=== PATIENT | female | born 1945 | race Caucasian/White ===

== ENCOUNTER → 2017-08-09 | Outpatient (CLI) | payer MEDICARE, BC | LOC: MC.RAD 07:40 | DX: Z12.31 Encounter for screening mammogram for malignant neoplasm of breast (principal) ==

== ENCOUNTER → 2021-03-02 | Outpatient (CLI) | payer MEDICARE, BC | LOC: MC.RAD 09:15 | DX: Z12.31 Encounter for screening mammogram for malignant neoplasm of breast (principal); N64.89 Other specified disorders of breast ==

== ENCOUNTER → 2021-03-04 | Outpatient (CLI) | payer MEDICARE, BC | LOC: MC.RAD 09:51 | DX: N63.11 Unspecified lump in the right breast, upper outer quadrant (principal); N64.89 Other specified disorders of breast ==

== ENCOUNTER → 2021-07-29 | Outpatient (CLI) | payer MEDICARE, BC | LOC: MC.RAD 09:07 | DX: N63.10 Unspecified lump in the right breast, unspecified quadrant (principal) ==

== ENCOUNTER → 2022-03-11 | Outpatient (CLI) | payer MEDICARE, BC | LOC: MC.RAD 08:53 | DX: N63.41 Unspecified lump in right breast, subareolar (principal); Z85.3 Personal history of malignant neoplasm of breast ==

== ENCOUNTER 2023-10-25 12:48 | Outpatient (CLI) | payer MEDICARE, BC ==
[~2023-10-25] VITALS: Ht 160 cm; Wt 71.8 kg
[2023-10-25] MEDS ORDERED: PROLIA60 MG/ML SQ (13:07)
[2023-10-25] MEDS ORDERED: LIPITOR 10MG10 MG PO (13:08)
[2023-10-25] MEDS ORDERED: CALCIUM 600MG+D1 TAB PO (13:08)
[2023-10-25] MEDS ORDERED: CLARITIN 1010 MG/TAB PO (13:09)
[2023-10-25] MEDS ORDERED: ESTRACE0.5 MG PO (13:10)
[2023-10-25] MEDS ORDERED: SYNTHROID0.137 MG PO (13:10)
[2023-10-25] MEDS ORDERED: BENICAR HCT 251 TAB PO (13:10)
[2023-10-25] MEDS ORDERED: COMPLETE MULTI1 TAB PO (13:11)
[2023-10-25] MEDS ORDERED: PROCARDIA XL 3030 MG PO (13:11)
[2023-10-25] MEDS ORDERED: SINGULAIR 110 MG/TAB PO (13:11)
[2023-10-25] MEDS ORDERED: ACIDOPHILIS PO (13:11)
[2023-10-25] MEDS ORDERED: COREG 3.123.125 MG/T PO (13:11)
[2023-10-25 13:13] VITALS: BP 133/80; PULSE 66; TEMP 97.6
--- NOTE | 2023-10-25 13:27 | NUR ---
Pt tolerated prolia without issue. She is escorted out of dept with steady gait.
== END 2023-10-25 13:27 | disposition home or self-care (01) ==
LOC: EUO 12:48
DX: M81.0 Age-related osteoporosis without current pathological fracture (principal)
CPT/HCPCS: J0897

== ENCOUNTER 2024-06-06 13:42 | Outpatient (CLI) | payer MEDICARE, BC ==
[~2024-06-06] VITALS: Ht 160 cm; Wt 71.2 kg
[~2024-06-06 13:42] MED LIST: ACIDOPHILIS PO; BENICAR HCT 251 TAB PO; CALCIUM 600MG+D1 TAB PO; CLARITIN 1010 MG/TAB PO; COMPLETE MULTI1 TAB PO; COREG 3.123.125 MG/T PO; ESTRACE0.5 MG PO; LIPITOR 10MG10 MG PO; PROCARDIA XL 3030 MG PO; PROLIA60 MG/ML SQ; SINGULAIR 110 MG/TAB PO; SYNTHROID0.137 MG PO
[2024-06-06] MEDS ORDERED: Denosumab 60 MG/ML SYRINGE SQ ONE (14:00)
[2024-06-06 14:10] VITALS: BP 129/77; PULSE 70; TEMP 98.3
== END 2024-06-06 14:17 ==
LOC: EUO 13:42
DX: M81.0 Age-related osteoporosis without current pathological fracture (principal)
CPT/HCPCS: J0897